=== PATIENT | female | born 1975 | race Caucasian/White ===

== ENCOUNTER 2021-11-15 08:46 | Day surgery (SDC) | payer BC ==
[2021-11-15] MEDS ORDERED: SCOPOLAMINE HYDROBROMIDE 1 PATCH PATCH.TD72 ONE (11:01)
[2021-11-15] MEDS ORDERED: OXYMETAZOLINE 0.05% NASAL SOLUTION 15 ML BOTTLE NS ONE (11:03)
[2021-11-15] MEDS ORDERED: POVIDONE-IODINE 5% OPHTHALMIC PREP 30 ML SOLUTION ONE (11:03)
[2021-11-15] MEDS ORDERED: BUPIVACAINE HCL 50 ML ONE (11:03)
[2021-11-15] MEDS ORDERED: TETRACAINE 0.5% OPHTH SOLN 2 ML BOTTLE ONE (11:03)
[2021-11-15] MEDS ORDERED: LIDOCAINE 1%/EPI 1:100000 (20 ML MULTI DOSE VIAL) ONE (11:03)
[2021-11-15] MEDS ORDERED: ERYTHROMYCIN 0.5% OPHTHALMIC OINTMENT 3.5 GM TUBE ONE (11:03)
[2021-11-15] MEDS ORDERED: KETOROLAC TROMETHAMINE 30 MG/1 ML VIAL ONE (11:11)
[2021-11-15] MEDS ORDERED: PROPOFOL 20 ML ONE ×7 (11:11→12:29)
[2021-11-15] MEDS ORDERED: DEXAMETHASONE SOD PHOSPHATE 4 MG/1 ML VIAL ONE (11:11)
[2021-11-15] MEDS ORDERED: LIDOCAINE HCL 2% JELLY (5 ML/TUBE) ONE (11:11)
[2021-11-15] MEDS ORDERED: MIDAZOLAM HCL 2 MG/2 ML SINGLE DOSE VIAL ONE (11:11)
[2021-11-15] MEDS ORDERED: ONDANSETRON 4 MG/2 ML VIAL ONE (11:11)
[2021-11-15] MEDS ORDERED: oxyCODONE HCL 5 MG TABLET PO PRN ×2 (13:01)
[2021-11-15] MEDS ORDERED: ONDANSETRON 4 MG/2 ML VIAL IVPUSH PRN (13:01)
[2021-11-15] MEDS ORDERED: PROMETHAZINE HCL 25 MG/1 ML VIAL IVPUSH PRN (13:01)
[2021-11-15 14:12] VITALS: BP 145/74; PULSE 74; TEMP 98
== END 2021-11-15 15:35 | disposition home or self-care (01) ==
LOC: FASU 08:46
PROVIDERS: ATTEND Ophthalmology
PROC: 09JY8ZZ Inspection of Sinus, Via Natural or Artificial Opening Endoscopic (ICD-10-PCS; 2021-11-15)
PROC: 081Y0Z3 Bypass Left Lacrimal Duct to Nasal Cavity, Open Approach (ICD-10-PCS; principal; 2021-11-15 11:45)
DX: H04.302 Unspecified dacryocystitis of left lacrimal passage (principal); H04.552 Acquired stenosis of left nasolacrimal duct
CPT/HCPCS: 84703; 87070; 87186; 87205; 88300-TC; 88304-TC; 94760